=== PATIENT | female | born 1990 | race Caucasian/White ===

== ENCOUNTER 2018-06-05 11:54 | Emergency (ER) | payer OTHER ==
[2018-06-05] MEDS ORDERED: ONDANSETRON 4 MG/2 ML VIAL IVP ONE (12:14)
[2018-06-05] MEDS ORDERED: NS 1,000 ML IV ONE (12:14)
[2018-06-05] MEDS ORDERED: PROMETHAZINE HCL 25 MG/ML INJ IVP ONE (12:19)
--- NOTE | 2018-06-05 12:20 | EDPHY ---
H & P Stated Complaint: N/V/Abd pain Time Seen by Provider: 06/05/18 12:19 HPI/ROS: HPI: This is a 28-year-old female who presents with Chief Complaint: Nausea, vomiting, abdominal pain Location: GI Quality: Nausea, vomiting, abdominal pain Duration: Since Friday afternoon Signs and Symptoms: no fever, + nausea, + vomiting, no hematemesis, no blood in stool, no abdominal bloating, no diarrhea, no back pain, no urinary symptoms, no vaginal bleeding/discharge, no indigestion, no chest pain, no shortness of breath Timing: Acute Severity: Moderate Context: Patient has a history of idiopathic pancreatitis, presents with sudden onset of nausea and vomiting approximately 5 times on for Friday and 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 She threw up once or twice on Friday. She reports that she has a burning sensation in the epigastric area with continue nausea and vomiting once per day since Friday. She ate a salad in ribs on Friday at [facility]. Denies fever, diarrhea, back pain, urinary symptoms, vaginal bleeding/discharge. Has an IUD. To PCP on Friday and had laboratory studies drawn and were "unremarkable" per patient. Patient reports that primary care provider already gave her a referral for Gastroenterology. Modifying Factors: Hydration Comment: ROS: A comprehensive 10 system review of systems is otherwise negative aside from elements mentioned in the history of present illness. MEDICAL/SURGICAL/SOCIAL HISTORY: Medical history: Depression, migraines, idiopathic pancreatitis. IUD in place. Surgical history: Denies Social history: Former smoker. Family history noncontributory. CONSTITUTIONAL: Nontoxic-appearing adult white female, significant other at bedside, awake and alert, no obvious distress HEENT: Atraumatic and normocephalic, PERRL, EOMI. Nares patent; no rhinorrhea; no nasal mucosal edema. Tympanic membranes clear. Oropharynx clear, no exudate and moist pink mucosa. Airway patent. No lymphadenopathy. No meningismus. Cardiovascular: Normal S1/S2, regular rate, regular rhythm, without murmur rub or gallop. PULMONARY/CHEST: Symmetrical and nontender. Clear to auscultation bilaterally. Good air movement. No accessory muscle usage. ABDOMEN: Soft, nondistended, mild right upper quadrant tenderness, moderate epigastric tenderness, mild left lower quadrant tenderness, no rebound, no guarding, no peritoneal signs, no masses or organomegaly. No CVAT. EXTREMITIES: 2/2 pulses, strength 5/5, no deformities, no clubbing, no cyanosis or edema. NEUROLOGICAL: no focal neuro deficits. GCS 15. SKIN: Warm and dry, no erythema. no rash. Good capillary refill. Source: Patient Exam Limitations: No limitations - Personal History LMP (Females 10-55): IUD In Place Current Tetanus/Diphtheria Vaccine: Yes - Medical/Surgical History Hx Asthma: No Hx Chronic Respiratory Disease: No Hx Diabetes: No Hx Cardiac Disease: No Hx Renal Disease: No Hx Cirrhosis: No Hx Alcoholism: No Other PMH: depression, migraines - Social History Smoking Status: Former smoker Constitutional: Initial Vital Signs Temperature (C) 36.6 C 06/05/18 11:58 Heart Rate 75 06/05/18 11:58 Respiratory Rate 18 06/05/18 11:58 Blood Pressure 113/76 06/05/18 11:58 O2 Sat (%) 95 06/05/18 11:58 O2 Delivery Mode Room Air Allergies/Adverse Reactions: No Known Allergies Allergy (Unverified 06/05/18 12:00) Home Medications: Medication Instructions Recorded Lexapro 06/05/18 Promethazine HCl 25 mg PO Q6 PRN #10 tablet 06/05/18 Taltz Syringe 06/05/18 Zofran 06/05/18 Medical Decision Making - Diagnostics Imaging Results: Imaging Impressions Abdomen CT 06/05/18 12:54 Impression: 1. No CT findings for appendicitis or diverticulitis. 2. Moderate constipation. 3. Possible focal fatty infiltration in the left lobe of the liver. Results called and discussed with GHULAM Odonnell, on 06/05/2018 at 1431 hours. ED Course/Re-evaluation: Vital signs reviewed and stable upon arrival. No systemic signs. IV access, laboratory studies, CT abdomen and pelvis scan ordered Given 1 L normal saline, IV Zofran 4 mg, IV promethazine 12.5 mg 1322: Labs reviewed. No signs of leukocytosis/anemia/platelet dysfunction/PATRICIA/ elevated LFTs/electrolyte imbalance/pancreatitis/. + macrocytosis without anemia 1430: Called by radiologist, Dr. Richard, who reports that CT abdomen and pelvis scan shows no signs of diverticulitis, appendicitis, obstruction, cholecystitis , pancreatitis. + moderate constipation Reassessed patient who reports no episodes of vomiting or diarrhea while in the emergency room. Primary care provider has already given her a referral to Gastroenterology. This appears to be a gastroenteritis in nature. Prescription for Phenergan given as well as recommendation to take over-the- counter Zantac verses Pepcid verses Nexium. If symptoms persist greater than 5- 7 days recommend gastroenterology follow-up for EGD. This patient was seen under the supervision of my secondary supervising physician. I evaluated care for this patient with attending. Discussed this patient with Dr. Puckett. Differential Diagnosis: Abdominal pain including but not limited to appendicitis, cholecystitis, gastritis and urinary tract infection. - Data Points Laboratory Results: Laboratory Results 06/05/18 12:20 06/05/18 12:20 06/05/18 06/05/18 06/05/18 12:20 12:20 12:20 WBC 4.06 10^3/uL 10^3/uL (3.80-9.50) RBC 4.05 10^6/uL L 10^6/uL (4.18-5.33) Hgb 14.6 g/dL g/dL (12.6-16.3) Hct 41.4 % % (38.0-47.0) MCV 102.2 fL H fL (81.5-99.8) MCH 36.0 pg H pg (27.9-34.1) MCHC 35.3 g/dL g/dL (32.4-36.7) RDW 11.5 % % (11.5-15.2) Plt Count 295 10^3/uL 10^3/uL (150-400) MPV 10.6 fL fL (8.7-11.7) Neut % (Auto) 52.0 % % (39.3-74.2) Lymph % (Auto) 35.2 % % (15.0-45.0) Mcpherson % (Auto) 11.6 % % (4.5-13.0) Eos % (Auto) 0.7 % % (0.6-7.6) Baso % (Auto) 0.5 % % (0.3-1.7) Nucleat RBC Rel Count 0.0 % % (0.0-0.2) Absolute Neuts (auto) 2.11 10^3/uL 10^3/uL (1.70-6.50) Absolute Lymphs (auto) 1.43 10^3/uL 10^3/uL (1.00-3.00) Absolute Monos (auto) 0.47 10^3/uL 10^3/uL (0.30-0.80) Absolute Eos (auto) 0.03 10^3/uL 10^3/uL (0.03-0.40) Absolute Basos (auto) 0.02 10^3/uL 10^3/uL (0.02-0.10) Absolute Nucleated RBC 0.00 10^3/uL 10^3/uL (0-0.01) Immature Gran % 0.0 % % (0.0-1.1) Immature Gran # 0.00 10^3/uL 10^3/uL (0.00-0.10) Sodium 137 mEq/L mEq/L (135-145) Potassium 4.1 mEq/L mEq/L (3.5-5.2) Chloride 101 mEq/L mEq/L (97-110) Carbon Dioxide 27 mEq/l mEq/l (22-31) Anion Gap 9 mEq/L mEq/L (6-14) BUN 8 mg/dL mg/dL (7-23) Creatinine 0.8 mg/dL mg/dL (0.6-1.0) Estimated GFR > 60 Glucose 86 mg/dL mg/dL (70-100) Calcium 9.8 mg/dL mg/dL (8.5-10.4) Total Bilirubin 0.7 mg/dL mg/dL (0.1-1.4) Conjugated Bilirubin 0.3 mg/dL mg/dL (0.0-0.5) Unconjugated Bilirubin 0.4 mg/dL mg/dL (0.0-1.1) AST 23 IU/L IU/L (14-46) ALT 21 IU/L IU/L (9-52) Alkaline Phosphatase 82 IU/L IU/L (38-126) Total Protein 8.4 g/dL H g/dL (6.3-8.2) Albumin 4.7 g/dL g/dL (3.5-5.0) Lipase 137 IU/L IU/L (23-300) Beta HCG, Qual NEGATIVE Medications Given: Discontinued Medications Sodium Chloride (Ns) 1,000 mls @ 0 mls/hr IV ONCE ONE PRN Reason: Wide Open Stop: 06/05/18 12:15 Last Admin: 06/05/18 12:18 Dose: 1,000 mls Ondansetron HCl (Zofran) 4 mg IVP EDNOW ONE Stop: 06/05/18 12:15 Last Admin: 06/05/18 12:23 Dose: Not Given Promethazine HCl (Phenergan) 12.5 mg IVP ONCE ONE Stop: 06/05/18 12:20 Last Admin: 06/05/18 12:22 Dose: 12.5 mg Departure - Departure Disposition: Home, Routine, Self-Care Clinical Impression: Macrocytosis without anemia, Gastroenteritis, Constipation by delayed colonic transit Condition: Good Instructions: Esomeprazole (By mouth), Gastroenteritis (ED), Constipation (ED) Additional Instructions: Consume a minimum of 8-10 glasses of water or electrolyte fluid replacement drinks that include Gatorade, Powerade, Pedialyte. Eat a bland diet for the next 48 hours and then slowly advance as tolerated. Take Phenergan 1 tab every 4 hours as needed for nausea, vomiting. Take [id number] Zantac or Pepcid or Nexium daily for the next 1-2 weeks. Take [id number] MiraLax daily as needed for constipation. If symptoms last greater than 5-7 days, follow-up with Gastroenterology and determine if EGD is recommended. Referrals: Yohana Shore MD [Primary Care Provider] - As per Instructions Prescriptions: Promethazine HCl 25 mg PO Q6 PRN #10 tablet PRN Reason: Nausea/Vomiting, Use 1st
[2018-06-05 12:40] LABS: PLATELET COUNT 295 10^3/uL (150-400)
[2018-06-05] MEDS ORDERED: IOHEXOL 300 mgI/ML (OMNIPAQUE) 150 ML BTL IV ONE (13:11)
[2018-06-05 14:57] VITALS: BP 120/63
== END 2018-06-05 14:56 | disposition home or self-care (01) ==
DX: D75.89 Other specified diseases of blood and blood-forming organs (principal); K52.9 Noninfective gastroenteritis and colitis, unspecified; K59.01 Slow transit constipation; E86.9 Volume depletion, unspecified; Z87.19 Personal history of other diseases of the digestive system
CPT/HCPCS: 96374; J2550; Q9967